=== PATIENT | male | born 1960 | race Caucasian/White ===

== ENCOUNTER 2017-10-11 11:28 | Outpatient (RCR) | payer OTHER, SELFPAY | END 2017-10-12 23:59 | disposition home or self-care (01) | LOC: CR 11:28 | PROVIDERS: PCP Family Medicine; Visit Provider Family Medicine | DX: Z51.89 Encounter for other specified aftercare (principal) ==

== ENCOUNTER 2017-11-08 08:00 | Outpatient (RCR) | payer OTHER, SELFPAY | END 2017-11-11 23:59 | disposition home or self-care (01) | LOC: CR 08:00 | PROVIDERS: PCP Family Medicine; Visit Provider Family Medicine | DX: Z51.89 Encounter for other specified aftercare (principal) ==

== ENCOUNTER 2017-12-11 08:00 | Outpatient (RCR) | payer SELFPAY, OTHER | END 2017-12-12 23:59 | disposition home or self-care (01) | LOC: CR 08:00 | PROVIDERS: PCP Family Medicine; Visit Provider Family Medicine | DX: Z51.89 Encounter for other specified aftercare (principal) ==

== ENCOUNTER 2018-01-10 08:00 | Outpatient (RCR) | payer SELFPAY | END 2018-01-11 23:59 | disposition home or self-care (01) | LOC: CR 08:00 | PROVIDERS: PCP Family Medicine; Visit Provider Family Medicine | DX: Z51.89 Encounter for other specified aftercare (principal) ==

== ENCOUNTER 2018-02-07 15:03 | Outpatient (RCR) | payer SELFPAY | END 2018-02-11 23:59 | disposition home or self-care (01) | LOC: CR 15:03 | PROVIDERS: PCP Family Medicine; Visit Provider Family Medicine | DX: Z51.89 Encounter for other specified aftercare (principal) ==

== ENCOUNTER 2018-03-12 08:00 | Outpatient (RCR) | payer OTHER, SELFPAY | END 2018-03-14 23:59 | disposition home or self-care (01) | LOC: CR 08:00 | PROVIDERS: PCP Family Medicine; Visit Provider Family Medicine | DX: Z51.89 Encounter for other specified aftercare (principal) ==

== ENCOUNTER 2018-04-11 12:51 | Outpatient (RCR) | payer SELFPAY | END 2018-04-11 23:59 | disposition home or self-care (01) | LOC: CR 12:51 | PROVIDERS: PCP Family Medicine; Visit Provider Family Medicine | DX: Z51.89 Encounter for other specified aftercare (principal) ==

== ENCOUNTER 2018-05-07 08:00 | Outpatient (RCR) | payer SELFPAY | END 2018-05-12 23:59 | disposition home or self-care (01) | LOC: CR 08:00 | PROVIDERS: PCP Family Medicine; Visit Provider Family Medicine | DX: Z51.89 Encounter for other specified aftercare (principal) ==

== ENCOUNTER 2018-06-11 08:00 | Outpatient (RCR) | payer SELFPAY | END 2018-06-11 23:59 | disposition home or self-care (01) | LOC: CR 08:00 | PROVIDERS: PCP Family Medicine; Visit Provider Family Medicine | DX: Z51.89 Encounter for other specified aftercare (principal) ==

== ENCOUNTER 2018-07-04 08:00 | Outpatient (RCR) | payer SELFPAY | END 2018-07-12 23:59 | disposition home or self-care (01) | LOC: CR 08:00 | PROVIDERS: PCP Family Medicine; Visit Provider Family Medicine | DX: Z51.89 Encounter for other specified aftercare (principal) ==

== ENCOUNTER 2018-07-25 09:48 | Emergency (ER) | payer MEDICARE, SELFPAY ==
[2018-07-25 09:51] VITALS: BP 129/76; PULSE 60; RESP 12; TEMP 36.2; O2SAT 98
--- NOTE | 2018-07-25 09:57 | W.ED.GENAD ---
Discharge Plan Disposition Patient Disposition: HOME Condition: Improving Discharge Details Chief Complaint: Laceration Clinical Impression: Laceration of hand, right Primary Care Provider: Vinay Caputo ED Provider: Percy Ramirez Home Meds and New Rx's Prescriptions: New cephalexin 500 mg tablet 500 mg PO TID 5 Days Qty: 15 RF: 0 Continued gabapentin 300 mg capsule 300 mg PO TID RF: 0 atorvastatin [Lipitor] 80 MG tablet 80 mg PO DAILY Qty: 90 RF: 4 aspirin [Aspirin Low-Strength] 81 MG tablet,chewable 81 mg PO DAILY RF: 0 famotidine 20 MG tablet 2 tab PO DAILY RF: 0 ProAir HFA 8.5 GM HFA aerosol inhaler 2 puff Inhalation prior to exercise PRNQty: 1 RF: 4 losartan 25 MG tablet 0.5 tab PO DAILY Qty: 90 RF: 4 nitroglycerin [Nitrostat] 0.4 MG tablet, sublingual 0.4 mg Sublingual ONCE Qty: 25 RF: 1 bisoprolol fumarate 5 MG tablet 2.5 mg PO DAILY Qty: 45 RF: 3 ibuprofen 600 MG tablet 600 mg PO PRN RF: 0 amoxicillin 500 MG capsule 2,000 mg PO 1 hour prior to proc RF: 0 sennosides [senna] 8.6 MG tablet 8.6 mg PO BID PRN PRNRF: 0 Vitamin C-Bioflavonoids 1 EACH tablet extended release 1 tab PO DAILY RF: 0 cholecalciferol (vitamin D3) 1,000 UNITS tablet 1 tab PO DAILY RF: 0 Discharge Instructions Instructions: Laceration (ED) Additional Instructions: Your laceration is healing by secondary intention. Continue dressing changes for the next 5 days. Take antibiotics as prescribed Return if you develop a fever, discharge from the wound, or any other acute concerns Medical Decision Making 58-year-old male who cut his right thenar eminence when it was pinched in his lawnmower deck on Sunday. He has been treating it with bacitracin and dressing. He was in cardiac rehab today and was referred for checkup by the nursing staff. He is afebrile and the wound appears to be healing by secondary intention. Thumb apposition and sensation are intact. His tetanus is current. We will treat him with 5 days of Keflex to prevent infection. He understands wound care. He is stable for discharge to home HPI General Mode of arrival: ambulatory. Date/Time Provider Initiated Documentation: 07/25/18 09:50. Limitations to Documentation: no limitations. Information obtained by: patient. History of Present Illness 58 year old M presents to the emergency department with the chief complaint of Right hand thenar eminence laceration on Sunday, described as mild, Quality is described as dull, and is localized to the right and upper extremity. Patient reports no radiation. Patient started experiencing this day(s) and it has been constant. No relieving factors improve symptom(s), No exacerbating factors reported . Patient notes no other symptoms.; denies fever/chills. Patient did receive the following treatments prior to arrival, none Related Data Home Medications Medication Instructions Recorded Confirmed aspirin [Aspirin Low-Strength] 81 mg PO DAILY tab-cap 08/03/14 01/30/18 atorvastatin [Lipitor] 80 mg PO DAILY #90 tab-cap 08/03/14 01/30/18 famotidine 2 tab PO DAILY tab-cap 11/03/14 01/30/18 ProAir HFA 2 puff INHALATION prior to 06/30/15 01/30/18 exercise PRN #1 inhaler losartan 0.5 tab PO DAILY #90 tab-cap 09/16/15 01/30/18 nitroglycerin [Nitrostat] 0.4 mg SUBLINGUAL ONCE #25 tab-cap 10/01/15 01/30/18 sennosides [senna] 8.6 mg PO BID PRN PRN 11/08/15 01/30/18 Vitamin C-Bioflavonoids 1 tab PO DAILY 11/15/15 01/30/18 cholecalciferol (vitamin D3) 1 tab PO DAILY 11/15/15 01/30/18 bisoprolol fumarate 2.5 mg PO DAILY #45 tab-cap 04/20/16 01/30/18 amoxicillin 2,000 mg PO 1 hour prior to proc 01/30/17 01/30/18 cap ibuprofen 600 mg PO PRN 01/30/17 01/30/18 gabapentin 300 mg capsule 300 mg PO TID 01/30/18 01/30/18 cephalexin 500 mg PO TID 5 Days #15 tab 07/25/18 Previous Rx's Medication Instructions Recorded cephalexin 500 mg PO TID 5 Days #15 tab 07/25/18 Allergies Allergy/AdvReac Type Severity Reaction Status Date / Time lisinopril Allergy Intermediate pruritis Verified 01/30/18 08:53 General Stated Complaint: Laceration ASH: 4 Review of Systems Review of Systems No fever, no discharge from the wound. No numbness or tingle tetanus status up-to-date 2013. [facility] Medical History CAD (coronary artery disease), [place] coronary artery Color blindness Hypertension Knee pain, chronic Surgical History Coronary Stent (07/31/14) KNEE SURGERY Family History SPOUSE Personal history of malignant neoplasm Mother Essential hypertension Father Personal history of malignant neoplasm Grandparent Diabetes Social History Smoking/Tobacco Use Status: Former Tobacco Use Drug use: Never Do you feel safe at home: Yes Do you feel safe in your relationship?: Yes Exam Narrative Exam Narrative: GEN: awake, alert, oriented 3. Pleasant, well groomed, interactive. HEAD: Normocephalic, atraumatic ENT: Mucous membranes moist, oropharynx unremarkable, External ear exam unremarkable EYES: PERRL, EOMI EXT: Full ROM, no edema, no rash. The right thenar eminence has a Y-shaped laceration through the soft tissue but without disruption of function. It is healing by secondary intention, there is no surrounding erythema and no discharge from the wound. Thumb apposition intact. Distal sensation intact Neuro: Grossly normal neurologic exam, conversant, interactive. Psych: Speech fluent, thoughts congruent, affect normal Course Vital Signs Temperature 36.2 C L 07/25/18 09:51 Pulse 60 07/25/18 09:51 Respiratory Rate 12 07/25/18 09:51 Blood Pressure 129/76 07/25/18 09:51 Pulse Oximetry 98 07/25/18 09:51 Temperature 36.2 C L 07/25/18 09:51 Temperature Source Temporal Artery Scan 07/25/18 09:51 Pulse 60 07/25/18 09:51 Respiratory Rate 12 07/25/18 09:51 Respiratory Effort Non-Labored 07/25/18 09:53 Blood Pressure 129/76 07/25/18 09:51 Blood Pressure Position Sitting 07/25/18 09:51 Pulse Oximetry 98 07/25/18 09:51 Oxygen Delivery Method Room Air 07/25/18 09:51 Oxygen Flow Rate 0 07/25/18 09:51 Pain Level 0 07/25/18 09:54
== END 2018-07-25 10:07 | disposition home or self-care (01) ==
LOC: ER 10:24
PROVIDERS: Emergency Provider Emergency Medicine; PCP Physician Assistant Medical
DX: S61.411A Laceration without foreign body of right hand, initial encounter (principal); W28.XXXA Contact with powered lawn mower, initial encounter
CPT/HCPCS: 99283

== ENCOUNTER 2018-08-08 11:23 | Outpatient (RCR) | payer SELFPAY | END 2018-08-11 23:59 | disposition home or self-care (01) | LOC: CR 11:23 | PROVIDERS: PCP Family Medicine; Visit Provider Family Medicine | DX: Z51.89 Encounter for other specified aftercare (principal) ==

== ENCOUNTER 2018-09-10 13:26 | Outpatient (RCR) | payer SELFPAY | END 2018-09-11 23:59 | disposition home or self-care (01) | LOC: CR 13:26 | PROVIDERS: PCP Physician Assistant Medical; Visit Provider Family Medicine | DX: Z51.89 Encounter for other specified aftercare (principal) ==

== ENCOUNTER 2018-10-08 11:42 | Outpatient (RCR) | payer SELFPAY | END 2018-10-12 23:59 | disposition home or self-care (01) | LOC: CR 11:42 | PROVIDERS: PCP Physician Assistant Medical; Visit Provider Family Medicine | DX: Z51.89 Encounter for other specified aftercare (principal) ==

== ENCOUNTER 2018-11-07 11:56 | Outpatient (RCR) | payer SELFPAY | END 2018-11-11 23:59 | disposition home or self-care (01) | LOC: CR 11:56 | PROVIDERS: PCP Physician Assistant Medical; Visit Provider Family Medicine | DX: Z51.89 Encounter for other specified aftercare (principal) ==

== ENCOUNTER 2018-12-12 12:00 | Outpatient (RCR) | payer SELFPAY | END 2018-12-12 23:59 | disposition home or self-care (01) | LOC: CR 12:00 | PROVIDERS: PCP Physician Assistant Medical; Visit Provider Family Medicine | DX: Z51.89 Encounter for other specified aftercare (principal) ==

== ENCOUNTER 2019-01-02 11:22 | Outpatient (RCR) | payer SELFPAY | END 2019-01-11 23:59 | disposition home or self-care (01) | LOC: CR 11:22 | PROVIDERS: PCP Physician Assistant Medical; Visit Provider Family Medicine | DX: Z51.89 Encounter for other specified aftercare (principal) ==

== ENCOUNTER 2019-02-06 08:00 | Outpatient (RCR) | payer SELFPAY | END 2019-02-11 23:59 | disposition home or self-care (01) | LOC: CR 08:00 | PROVIDERS: PCP Physician Assistant Medical; Visit Provider Family Medicine | DX: Z51.89 Encounter for other specified aftercare (principal) ==

== ENCOUNTER 2019-03-13 08:00 | Outpatient (RCR) | payer SELFPAY | END 2019-03-14 23:59 | disposition home or self-care (01) | LOC: CR 08:00 | PROVIDERS: PCP Physician Assistant Medical; Visit Provider Family Medicine | DX: Z51.89 Encounter for other specified aftercare (principal) ==

== ENCOUNTER 2019-04-10 08:00 | Outpatient (RCR) | payer SELFPAY | END 2019-04-12 23:59 | disposition home or self-care (01) | LOC: CR 08:00 | PROVIDERS: PCP Physician Assistant Medical; Visit Provider Family Medicine | DX: Z51.89 Encounter for other specified aftercare (principal) ==

== ENCOUNTER 2019-04-22 08:00 | Outpatient (RCR) | payer SELFPAY | END 2019-05-13 23:59 | disposition home or self-care (01) | LOC: CR 08:00 | PROVIDERS: PCP Physician Assistant Medical; Visit Provider Family Medicine | DX: Z51.89 Encounter for other specified aftercare (principal) ==

== ENCOUNTER 2020-08-10 09:00 | Outpatient (RCR) | payer SELFPAY ==
[2020-07-13 15:53] VITALS: BP 130/87; PULSE 63
[2020-07-15 08:58] VITALS: BP 121/81; PULSE 61
[2020-07-20 09:02] VITALS: BP 135/87; PULSE 80
[2020-07-22 08:55] VITALS: BP 146/81; PULSE 62
[2020-07-27 08:51] VITALS: BP 128/84; PULSE 63
[2020-08-03 08:55] VITALS: BP 142/88; PULSE 63
[2020-08-05 08:34] VITALS: BP 114/72; PULSE 62
[2020-08-10 09:07] VITALS: BP 134/75; PULSE 63
== END 2020-08-11 23:59 | disposition home or self-care (01) ==
LOC: CR 09:00
PROVIDERS: PCP Physician Assistant Medical; Visit Provider Family Medicine
DX: Z51.89 Encounter for other specified aftercare (principal)

== ENCOUNTER 2020-09-09 09:00 | Outpatient (RCR) | payer SELFPAY ==
[2020-08-12 00:26] VITALS: BP 134/75; PULSE 63
[2020-08-12 08:54] VITALS: BP 142/90; PULSE 60
[2020-08-17 09:00] VITALS: BP 130/79; PULSE 59; O2SAT 94
[2020-08-24 08:59] VITALS: BP 126/78; PULSE 62
[2020-08-26 08:57] VITALS: BP 118/86; PULSE 69
[2020-08-31 09:17] VITALS: BP 116/69; PULSE 63
[2020-09-07 09:06] VITALS: BP 129/80; PULSE 61
[2020-09-09 08:59] VITALS: BP 132/82; PULSE 60
== END 2020-09-11 23:59 | disposition home or self-care (01) ==
LOC: CR 09:00
PROVIDERS: PCP Physician Assistant Medical; Visit Provider Family Medicine
DX: Z51.89 Encounter for other specified aftercare (principal)

== ENCOUNTER 2020-10-12 09:00 | Outpatient (RCR) | payer SELFPAY ==
[2020-09-12 00:25] VITALS: BP 132/82; PULSE 60
[2020-09-14 08:57] VITALS: BP 126/71; PULSE 53
[2020-09-16 08:48] VITALS: BP 120/69; PULSE 60
[2020-09-21 08:58] VITALS: BP 124/78; PULSE 51
[2020-09-23 09:05] VITALS: BP 123/78; PULSE 61
[2020-09-28 09:34] VITALS: BP 125/80; PULSE 59
[2020-10-05 09:22] VITALS: BP 118/64; PULSE 58
[2020-10-12 09:08] VITALS: BP 129/75; PULSE 67
== END 2020-10-12 23:59 | disposition home or self-care (01) ==
LOC: CR 09:00
PROVIDERS: PCP Physician Assistant Medical; Visit Provider Family Medicine
DX: Z51.89 Encounter for other specified aftercare (principal)

== ENCOUNTER 2020-11-11 09:00 | Outpatient (RCR) | payer SELFPAY ==
[2020-10-13 00:11] VITALS: BP 129/75; PULSE 67
[2020-10-14 10:15] VITALS: BP 123/75; PULSE 58
[2020-10-19 13:25] VITALS: BP 111/67; PULSE 61
[2020-10-21 09:40] VITALS: BP 122/67; PULSE 62
[2020-10-26 09:05] VITALS: BP 137/81; PULSE 67
[2020-10-28 09:39] VITALS: BP 128/76; PULSE 65
[2020-11-02 08:56] VITALS: BP 126/80; PULSE 56
[2020-11-04 10:52] VITALS: BP 116/68; PULSE 56
[2020-11-09 09:13] VITALS: BP 111/65; PULSE 67
[2020-11-11 08:52] VITALS: BP 125/73; PULSE 62
[2020-11-16 09:06] VITALS: BP 133/87; PULSE 59
== END 2020-11-11 23:59 | disposition home or self-care (01) ==
LOC: CR 09:00
PROVIDERS: PCP Physician Assistant Medical; Visit Provider Family Medicine
DX: Z51.89 Encounter for other specified aftercare (principal)

== ENCOUNTER 2020-12-07 09:00 | Outpatient (RCR) | payer SELFPAY ==
[2020-11-12 00:21] VITALS: BP 125/73; PULSE 62
[2020-11-18 09:05] VITALS: BP 128/69; PULSE 62
[2020-11-23 09:46] VITALS: BP 132/82; PULSE 62
[2020-11-25 09:25] VITALS: BP 115/70; PULSE 57
[2020-11-30 08:51] VITALS: BP 140/77; PULSE 57
[2020-12-02 08:45] VITALS: BP 125/76; PULSE 65
[2020-12-07 09:09] VITALS: BP 136/79; PULSE 57
== END 2020-12-12 23:59 | disposition home or self-care (01) ==
LOC: CR 09:00
PROVIDERS: PCP Physician Assistant Medical; Visit Provider Family Medicine
DX: Z51.89 Encounter for other specified aftercare (principal); R69 Illness, unspecified

== ENCOUNTER 2021-01-11 09:00 | Outpatient (RCR) | payer SELFPAY ==
[2020-12-13 00:24] VITALS: BP 136/79; PULSE 57
[2020-12-14 09:05] VITALS: BP 123/75; PULSE 63
[2020-12-16 08:58] VITALS: BP 103/66; PULSE 63
[2020-12-21 09:10] VITALS: BP 133/77; PULSE 67
[2020-12-23 11:00] VITALS: BP 125/77; PULSE 69
[2020-12-30 08:58] VITALS: BP 123/78; PULSE 71
[2021-01-04 09:05] VITALS: BP 128/79; PULSE 62
[2021-01-11 09:27] VITALS: BP 137/79; PULSE 72
== END 2021-01-11 23:59 | disposition home or self-care (01) ==
LOC: CR 09:00
PROVIDERS: PCP Physician Assistant Medical; Visit Provider Family Medicine
DX: Z51.89 Encounter for other specified aftercare (principal); R69 Illness, unspecified

== ENCOUNTER 2021-02-10 09:00 | Outpatient (RCR) | payer SELFPAY ==
[2021-01-12 00:20] VITALS: BP 137/79; PULSE 72
[2021-01-13 08:58] VITALS: BP 124/73; PULSE 74
[2021-01-20 08:19] VITALS: BP 147/80; PULSE 71
[2021-01-25 08:51] VITALS: BP 138/81; PULSE 61
[2021-01-27 08:16] VITALS: BP 116/65; PULSE 62
[2021-02-01 08:57] VITALS: BP 129/76; PULSE 64
[2021-02-03 08:57] VITALS: BP 137/80; PULSE 70
[2021-02-10 09:12] VITALS: BP 139/75; PULSE 58
== END 2021-02-11 23:59 | disposition home or self-care (01) ==
LOC: CR 09:00
PROVIDERS: PCP Physician Assistant Medical; Visit Provider Family Medicine
DX: Z51.89 Encounter for other specified aftercare (principal)

== ENCOUNTER 2021-02-14 15:10 | Outpatient (RCR) | payer SELFPAY ==
[2021-02-12 00:09] VITALS: BP 139/75; PULSE 58
== END 2021-03-14 23:59 | disposition home or self-care (01) ==
LOC: CR 15:10
PROVIDERS: PCP Physician Assistant Medical; Visit Provider Family Medicine
DX: R69 Illness, unspecified (principal)

== ENCOUNTER 2021-05-10 09:00 | Outpatient (RCR) | payer SELFPAY ==
[2021-04-12 09:31] VITALS: BP 126/76; PULSE 82
[2021-04-14 09:16] VITALS: BP 122/75; PULSE 63
[2021-04-19 08:59] VITALS: BP 145/92; PULSE 57
[2021-04-21 09:29] VITALS: BP 145/80; PULSE 67
[2021-04-26 09:07] VITALS: BP 132/66; PULSE 56
[2021-04-28 09:01] VITALS: BP 139/73; PULSE 55
[2021-05-03 08:59] VITALS: BP 131/76; PULSE 61; O2SAT 96
[2021-05-10 09:25] VITALS: BP 135/81; PULSE 62
[2021-05-12 11:43] VITALS: BP 138/78; PULSE 55
== END 2021-05-12 23:59 | disposition home or self-care (01) ==
LOC: CR 09:00
PROVIDERS: PCP Physician Assistant Medical; Visit Provider Family Medicine
DX: R69 Illness, unspecified (principal)

== ENCOUNTER 2021-06-09 09:00 | Outpatient (RCR) | payer SELFPAY ==
[2021-05-13 00:06] VITALS: BP 138/78; PULSE 55
[2021-05-17 09:14] VITALS: BP 181/94; PULSE 67
[2021-05-19 09:02] VITALS: BP 143/88; PULSE 60
[2021-05-24 09:17] VITALS: BP 157/87; PULSE 62
[2021-05-26 08:52] VITALS: BP 151/80; PULSE 61
[2021-05-31 09:42] VITALS: BP 130/77; PULSE 59
[2021-06-02 09:48] VITALS: BP 147/91; PULSE 60; O2SAT 94
[2021-06-07 08:57] VITALS: BP 142/84; PULSE 54
[2021-06-09 10:21] VITALS: BP 158/80; PULSE 50
== END 2021-06-11 23:59 | disposition home or self-care (01) ==
LOC: CR 09:00
PROVIDERS: PCP Physician Assistant Medical; Visit Provider Internal Medicine Cardiovascular Disease
DX: R69 Illness, unspecified (principal)

== ENCOUNTER 2021-07-05 09:00 | Outpatient (RCR) | payer SELFPAY ==
[2021-06-12 00:13] VITALS: BP 158/80; PULSE 50
[2021-06-14 09:06] VITALS: BP 133/79; PULSE 61
[2021-06-16 08:59] VITALS: BP 149/83; PULSE 55
[2021-06-21 09:00] VITALS: BP 152/86; PULSE 53
[2021-06-28 10:11] VITALS: BP 145/84; PULSE 55
[2021-07-05 09:35] VITALS: BP 155/85; PULSE 56
== END 2021-07-12 23:59 | disposition home or self-care (01) ==
LOC: CR 09:00
PROVIDERS: PCP Physician Assistant Medical; Visit Provider Internal Medicine Cardiovascular Disease
DX: R69 Illness, unspecified (principal)

== ENCOUNTER 2021-08-11 15:05 | Outpatient (RCR) | payer SELFPAY ==
[2021-07-13 00:15] VITALS: BP 155/85; PULSE 56
[2021-07-14 08:56] VITALS: BP 145/82; PULSE 55
[2021-07-19 08:54] VITALS: BP 118/60; PULSE 57
[2021-07-26 09:32] VITALS: BP 157/87; PULSE 54
[2021-07-28 09:03] VITALS: BP 136/84; PULSE 62
[2021-08-02 09:01] VITALS: BP 154/85; PULSE 53
[2021-08-04 08:51] VITALS: BP 142/80; PULSE 54
[2021-08-09 09:42] VITALS: BP 130/82; PULSE 52
[2021-08-11 09:00] VITALS: BP 141/83; PULSE 52
== END 2021-08-11 23:59 | disposition home or self-care (01) ==
LOC: CR 15:05
PROVIDERS: PCP Physician Assistant Medical; Visit Provider Internal Medicine Cardiovascular Disease
DX: R69 Illness, unspecified (principal)

== ENCOUNTER 2021-09-08 08:46 | Outpatient (RCR) | payer SELFPAY ==
[2021-08-16 09:19] VITALS: BP 147/83; PULSE 52
[2021-08-18 09:12] VITALS: BP 137/81; PULSE 58
[2021-08-23 08:50] VITALS: BP 137/75; PULSE 62
[2021-08-25 09:50] VITALS: BP 127/80; PULSE 62
[2021-08-30 08:53] VITALS: BP 122/78; PULSE 55
[2021-09-08 08:47] VITALS: BP 120/76; PULSE 54
== END 2021-09-11 23:59 | disposition home or self-care (01) ==
LOC: CR 08:46
PROVIDERS: PCP Physician Assistant Medical; Visit Provider Internal Medicine Cardiovascular Disease
DX: R69 Illness, unspecified (principal)

== ENCOUNTER 2021-10-11 09:00 | Outpatient (RCR) | payer SELFPAY ==
[2021-09-12 00:15] VITALS: BP 120/76; PULSE 54
[2021-09-13 09:18] VITALS: BP 120/72; PULSE 59
[2021-09-15 09:19] VITALS: BP 142/83; PULSE 58
[2021-09-20 09:26] VITALS: BP 122/77; PULSE 53
[2021-09-22 09:17] VITALS: BP 147/89; PULSE 57
[2021-09-27 08:45] VITALS: BP 122/78; PULSE 56
[2021-09-29 08:48] VITALS: BP 124/74; PULSE 54; O2SAT 92
[2021-10-04 08:50] VITALS: BP 133/82; PULSE 60
[2021-10-06 08:45] VITALS: BP 116/69; PULSE 55
[2021-10-11 09:12] VITALS: BP 124/79; PULSE 55
== END 2021-10-12 23:59 | disposition home or self-care (01) ==
LOC: CR 09:00
PROVIDERS: PCP Physician Assistant Medical; Visit Provider Internal Medicine Cardiovascular Disease
DX: R69 Illness, unspecified (principal)

== ENCOUNTER 2021-11-08 09:03 | Outpatient (RCR) | payer SELFPAY ==
[2021-10-13 00:06] VITALS: BP 124/79; PULSE 55
[2021-10-13 09:03] VITALS: BP 136/75; PULSE 55
[2021-10-25 08:41] VITALS: BP 148/79; PULSE 57
[2021-10-27 09:20] VITALS: BP 139/77; PULSE 62
[2021-11-01 08:51] VITALS: BP 131/72; PULSE 52
[2021-11-03 08:51] VITALS: BP 141/77; PULSE 58
[2021-11-08 08:54] VITALS: BP 164/81; PULSE 57
== END 2021-11-11 23:59 | disposition home or self-care (01) ==
LOC: CR 09:03
PROVIDERS: PCP Physician Assistant Medical; Visit Provider Internal Medicine Cardiovascular Disease
DX: R69 Illness, unspecified (principal)

== ENCOUNTER 2021-12-08 08:43 | Outpatient (RCR) | payer SELFPAY ==
[2021-11-12 00:18] VITALS: BP 164/81; PULSE 57
[2021-11-15 08:58] VITALS: BP 151/84; PULSE 57
[2021-11-17 08:52] VITALS: BP 144/78; PULSE 59
[2021-11-22 08:53] VITALS: BP 130/77; PULSE 58
[2021-11-24 09:29] VITALS: BP 137/76; PULSE 58
[2021-12-01 09:53] VITALS: BP 141/86; PULSE 53
[2021-12-08 08:46] VITALS: BP 112/72; PULSE 57
== END 2021-12-12 23:59 | disposition home or self-care (01) ==
LOC: CR 08:43
PROVIDERS: PCP Physician Assistant Medical; Visit Provider Internal Medicine Cardiovascular Disease
DX: R69 Illness, unspecified (principal)
CPT/HCPCS: S9472

== ENCOUNTER 2022-01-10 09:13 | Outpatient (RCR) | payer SELFPAY ==
[2021-12-13 00:07] VITALS: BP 112/72; PULSE 57
[2021-12-13 11:32] VITALS: BP 122/77; PULSE 58
[2021-12-15 09:00] VITALS: BP 134/75; PULSE 55
[2021-12-22 08:48] VITALS: BP 126/81; PULSE 57
[2021-12-27 08:59] VITALS: BP 117/68; PULSE 65
[2021-12-29 08:51] VITALS: BP 136/81; PULSE 53
[2022-01-10 09:17] VITALS: BP 115/57; PULSE 60
== END 2022-01-11 23:59 | disposition home or self-care (01) ==
LOC: CR 09:13
PROVIDERS: PCP Physician Assistant Medical; Visit Provider Internal Medicine Cardiovascular Disease
DX: R69 Illness, unspecified (principal)

== ENCOUNTER 2022-02-09 09:05 | Outpatient (RCR) | payer SELFPAY ==
[2022-01-12 00:06] VITALS: BP 115/57; PULSE 60
[2022-01-12 09:32] VITALS: BP 131/78; PULSE 63
[2022-01-17 10:11] VITALS: BP 150/91; PULSE 63
[2022-01-19 09:00] VITALS: BP 122/75; PULSE 72
[2022-01-24 08:57] VITALS: BP 103/65; PULSE 63
[2022-01-31 09:05] VITALS: BP 114/68; PULSE 55
[2022-02-02 09:28] VITALS: BP 138/76; PULSE 74
[2022-02-09 09:06] VITALS: BP 137/72; PULSE 65
== END 2022-02-11 23:59 | disposition home or self-care (01) ==
LOC: CR 09:05
PROVIDERS: PCP Physician Assistant Medical; Visit Provider Internal Medicine Cardiovascular Disease
DX: R69 Illness, unspecified (principal)

== ENCOUNTER 2022-03-14 09:15 | Outpatient (RCR) | payer SELFPAY ==
[2022-02-12 00:04] VITALS: BP 137/72; PULSE 65
[2022-02-16 09:17] VITALS: BP 139/74; PULSE 57
[2022-02-21 08:59] VITALS: BP 131/73; PULSE 62
[2022-02-28 09:07] VITALS: BP 149/80; PULSE 63
[2022-03-02 09:10] VITALS: BP 145/83; PULSE 53
[2022-03-07 09:04] VITALS: BP 158/88; PULSE 59
[2022-03-09 09:10] VITALS: BP 144/87; PULSE 58
[2022-03-14 13:21] VITALS: BP 130/81; PULSE 60
== END 2022-03-14 23:59 | disposition home or self-care (01) ==
LOC: CR 09:15
PROVIDERS: PCP Physician Assistant Medical; Visit Provider Internal Medicine Cardiovascular Disease
DX: R69 Illness, unspecified (principal)

== ENCOUNTER 2022-04-11 09:00 | Outpatient (RCR) | payer SELFPAY ==
[2022-03-16 09:04] VITALS: BP 158/83; PULSE 60
[2022-03-21 13:54] VITALS: BP 120/74; PULSE 52
[2022-03-23 13:16] VITALS: BP 131/79; PULSE 58
[2022-03-28 08:59] VITALS: BP 139/79; PULSE 59
[2022-04-04 09:17] VITALS: BP 121/65; PULSE 56
[2022-04-06 08:58] VITALS: BP 127/79; PULSE 60
[2022-04-11 08:53] VITALS: BP 135/78; PULSE 62
== END 2022-04-11 23:59 | disposition home or self-care (01) ==
LOC: CR 09:00
PROVIDERS: PCP Physician Assistant Medical; Visit Provider Internal Medicine Cardiovascular Disease
DX: R69 Illness, unspecified (principal)

== ENCOUNTER 2022-05-11 08:51 | Outpatient (RCR) | payer SELFPAY ==
[2022-04-12 00:08] VITALS: BP 135/78; PULSE 62
[2022-04-13 08:57] VITALS: BP 106/67; PULSE 67
[2022-04-18 09:02] VITALS: BP 127/80; PULSE 55
[2022-04-25 09:13] VITALS: BP 127/74; PULSE 63
[2022-05-02 09:28] VITALS: BP 119/72; PULSE 61
[2022-05-04 09:10] VITALS: BP 140/78; PULSE 58
[2022-05-09 09:11] VITALS: BP 164/90; PULSE 60
[2022-05-11 08:48] VITALS: BP 163/82; PULSE 60
[2022-05-16 08:49] VITALS: BP 134/79; PULSE 60
== END 2022-05-12 23:59 | disposition home or self-care (01) ==
LOC: CR 08:51
PROVIDERS: PCP Physician Assistant Medical; Visit Provider Internal Medicine Cardiovascular Disease

== ENCOUNTER 2022-06-05 01:35 | Outpatient (CLI) | payer MEDICARE, SELFPAY ==
[2022-06-05 13:30] LABS: PTT Activated 25.9 sec (21.5-31.9); Prothrombin Time 9.8 sec (9.3-11.0)
[2022-06-05 13:42] LABS: Abs Immature Grans 0.05 10^3/uL (0.0-0.06); Absolute Basophil Count 0.06 10^3/uL (0.0-0.2); Absolute Lymphocyte Count 2.08 10^3/uL (1.2-3.4); Absolute Monocyte Count 0.61 10^3/uL (0.1-0.8); Basophils % 0.5; Eosinophils % 0.9; HCT 38.4 % (40.0-50.0); HGB 12.8 g/dL (13.5-17.5); Immature Grans % 0.4; MCH 29.9 pg (27.0-33.0); MCHC 33.3 % (32.0-36.0); MCV 90 fL (80-95); MPV 10.2 fL (8.0-11.0); Monocytes % 5.3; Neutrophils % 74.9; Platelet Count 310 10^3/uL (130-400); RBC 4.28 10^6/uL (4.36-5.78); RDW 13.5 % (11.8-14.1); RDW-SD 44.6 fL; WBC 11.58 10^3/uL (4.4-10.8)
[2022-06-05 14:00] LABS: Bilirubin Negative (Negative); Blood Moderate (Negative); Clarity Clear (Clear); Glucose Negative (Negative); Ketones Negative (Negative); Leukocyte Esterase Negative (Negative); Nitrite Negative (Negative); Specific Gravity 1.025 (1.005-1.025); Urobilinogen 0.2 mg/dL (Up to 0.2)
[2022-06-05 14:00] LABS: Absolute Neutrophil Count 8.67 10^3/uL (1.2-6.7)
[2022-06-05 14:02] LABS: Anion Gap 9.2 mmol/L (3-11); BUN 9 mg/dL (7-18); CO2 24.8 mmol/L (21.0-32.0); CREATININE 0.9 mg/dL (0.70-1.30); Chloride 106 mmol/L (98-107); Estimated GFR 95.97 (mL/min/1.73m2); Potassium 3.9 mmol/L (3.5-5.1); Sodium 140 mmol/L (136-145)
[2022-06-05 14:14] LABS: Bacteria Few HPF (Negative); C & S Indicated? No; Casts Negative LPF (Negative); Crystals Negative HPF (Negative); Epithelial Cells Rare HPF (Negative); Mucus Negative (Negative); Other Cells Negative (Negative); WBC Negative HPF (0-5)
== END 2022-06-05 01:36 | disposition home or self-care (01) ==
LOC: LBO 01:35
PROVIDERS: PCP Physician Assistant Medical; Visit Provider Neurological Surgery
DX: M43.16 Spondylolisthesis, lumbar region (principal); R82.998 Other abnormal findings in urine; Z86.2 Personal history of diseases of the blood and blood-forming organs and certain disorders involving the immune mechanism
CPT/HCPCS: 36415; 80051; 84520; 81003; 81015; 82565; 85025; 85610; 85730

== ENCOUNTER 2022-06-06 09:11 | Outpatient (RCR) | payer SELFPAY ==
[2022-05-13 00:17] VITALS: BP 163/82; PULSE 60
[2022-05-18 09:03] VITALS: BP 137/80
[2022-05-23 08:55] VITALS: BP 114/58; PULSE 66
[2022-05-25 09:00] VITALS: BP 153/86; PULSE 54
[2022-05-30 08:53] VITALS: BP 116/69; PULSE 62
[2022-06-01 09:01] VITALS: BP 116/75; PULSE 59
[2022-06-06 10:11] VITALS: BP 117/65; PULSE 64
== END 2022-06-11 23:59 | disposition home or self-care (01) ==
LOC: CR 09:11
PROVIDERS: PCP Physician Assistant Medical; Visit Provider Internal Medicine Cardiovascular Disease
DX: R69 Illness, unspecified (principal)

== ENCOUNTER 2022-10-10 09:18 | Outpatient (RCR) | payer SELFPAY ==
[2022-09-12 09:08] VITALS: BP 129/76; PULSE 57
[2022-09-14 09:22] VITALS: BP 133/75; PULSE 50
[2022-09-19 08:55] VITALS: BP 128/71; PULSE 56
[2022-09-26 09:31] VITALS: BP 130/76; PULSE 53
[2022-09-28 08:44] VITALS: BP 119/72; PULSE 55
[2022-10-05 09:18] VITALS: BP 143/74; PULSE 50
[2022-10-10 09:38] VITALS: BP 117/67; PULSE 57
== END 2022-10-12 23:59 | disposition home or self-care (01) ==
LOC: CR 09:18
PROVIDERS: PCP Physician Assistant Medical; Visit Provider Internal Medicine Cardiovascular Disease
DX: R69 Illness, unspecified (principal)

== ENCOUNTER 2022-11-09 09:07 | Outpatient (RCR) | payer SELFPAY ==
[2022-10-13 00:21] VITALS: BP 117/67; PULSE 57
[2022-10-17 09:16] VITALS: BP 125/73; PULSE 62
[2022-10-19 09:27] VITALS: BP 126/77; PULSE 58
[2022-10-24 09:10] VITALS: BP 115/70; PULSE 61
[2022-10-26 10:12] VITALS: BP 101/60; PULSE 57
[2022-11-02 09:15] VITALS: BP 105/68; PULSE 55
[2022-11-07 09:14] VITALS: BP 113/65; PULSE 55
[2022-11-09 09:15] VITALS: BP 113/69; PULSE 55
== END 2022-11-11 23:59 | disposition home or self-care (01) ==
LOC: CR 09:07
PROVIDERS: PCP Physician Assistant Medical; Visit Provider Internal Medicine Cardiovascular Disease
DX: R69 Illness, unspecified (principal)

== ENCOUNTER 2022-12-07 09:05 | Outpatient (RCR) | payer SELFPAY ==
[2022-11-12 00:17] VITALS: BP 113/69; PULSE 55
[2022-11-30 09:34] VITALS: BP 129/85; PULSE 54
[2022-12-05 09:20] VITALS: BP 141/78; PULSE 58
[2022-12-07 08:45] VITALS: BP 118/74; PULSE 57
== END 2022-12-12 23:59 | disposition home or self-care (01) ==
LOC: CR 09:05
PROVIDERS: PCP Physician Assistant Medical; Visit Provider Internal Medicine Cardiovascular Disease
DX: R69 Illness, unspecified (principal)

== ENCOUNTER 2023-01-11 09:07 | Outpatient (RCR) | payer SELFPAY ==
[2022-12-13 00:21] VITALS: BP 113/69; PULSE 55
[2022-12-21 09:03] VITALS: BP 149/74; PULSE 54
[2022-12-28 09:28] VITALS: BP 103/66; PULSE 58
[2023-01-02 09:20] VITALS: BP 116/64; PULSE 56
[2023-01-09 09:07] VITALS: BP 135/64; PULSE 73
[2023-01-11 08:58] VITALS: BP 131/69; PULSE 51
== END 2023-01-11 23:59 | disposition home or self-care (01) ==
LOC: CR 09:07
PROVIDERS: PCP Physician Assistant Medical; Visit Provider Internal Medicine Cardiovascular Disease
DX: R69 Illness, unspecified (principal)

== ENCOUNTER 2023-02-06 08:46 | Outpatient (RCR) | payer SELFPAY ==
[2023-01-12 00:11] VITALS: BP 113/69; PULSE 55
[2023-01-16 09:00] VITALS: BP 142/70; PULSE 59
[2023-01-18 08:55] VITALS: BP 116/69; PULSE 59
[2023-01-25 10:49] VITALS: BP 109/71; PULSE 60
[2023-01-30 08:45] VITALS: BP 128/68; PULSE 51
[2023-02-01 09:01] VITALS: BP 111/68; PULSE 55
[2023-02-06 09:06] VITALS: BP 111/67; PULSE 51
== END 2023-02-11 23:59 | disposition home or self-care (01) ==
LOC: CR 08:46
PROVIDERS: PCP Physician Assistant Medical; Visit Provider Internal Medicine Cardiovascular Disease
DX: R69 Illness, unspecified (principal)

== ENCOUNTER 2023-03-08 09:16 | Outpatient (RCR) | payer SELFPAY ==
[2023-02-12 00:05] VITALS: BP 113/69; PULSE 55
[2023-02-13 09:12] VITALS: BP 128/65; PULSE 54
[2023-02-20 09:18] VITALS: BP 111/69; PULSE 54
[2023-03-01 08:51] VITALS: BP 108/59; PULSE 62
[2023-03-08 09:21] VITALS: BP 106/67; PULSE 58
== END 2023-03-14 23:59 | disposition home or self-care (01) ==
LOC: CR 09:16
PROVIDERS: PCP Physician Assistant Medical; Visit Provider Internal Medicine Interventional Cardiology
DX: R69 Illness, unspecified (principal)

== ENCOUNTER 2023-04-10 09:53 | Outpatient (RCR) | payer SELFPAY ==
[2023-03-15 00:05] VITALS: BP 113/69; PULSE 55
[2023-03-15 08:54] VITALS: BP 112/67; PULSE 53
[2023-03-20 09:14] VITALS: BP 107/68; PULSE 62
[2023-03-22 09:51] VITALS: BP 134/67; PULSE 51
[2023-03-27 08:58] VITALS: BP 138/70; PULSE 62
[2023-04-10 10:16] VITALS: BP 143/85; PULSE 49
== END 2023-04-12 23:59 | disposition home or self-care (01) ==
LOC: CR 09:53
PROVIDERS: PCP Physician Assistant Medical; Visit Provider Internal Medicine Cardiovascular Disease
DX: R69 Illness, unspecified (principal)

== ENCOUNTER 2023-05-08 09:03 | Outpatient (RCR) | payer SELFPAY ==
[2023-04-13 00:17] VITALS: BP 113/69; PULSE 55
[2023-04-17 08:57] VITALS: BP 129/77; PULSE 55
[2023-04-24 09:05] VITALS: BP 142/80; PULSE 55
[2023-04-26 09:37] VITALS: BP 130/72; PULSE 58
[2023-05-01 09:00] VITALS: BP 163/85; PULSE 56
[2023-05-08 08:53] VITALS: BP 136/81; PULSE 54
== END 2023-05-13 23:59 | disposition home or self-care (01) ==
LOC: CR 09:03
PROVIDERS: PCP Physician Assistant Medical; Visit Provider Internal Medicine Cardiovascular Disease
DX: R69 Illness, unspecified (principal)

== ENCOUNTER 2023-06-12 08:45 | Outpatient (RCR) | payer SELFPAY ==
[2023-05-15 10:15] VITALS: BP 121/67; PULSE 57
[2023-05-17 08:46] VITALS: BP 133/74; PULSE 59
[2023-05-22 09:11] VITALS: BP 118/63; PULSE 52
[2023-06-12 08:56] VITALS: BP 145/80; PULSE 59
== END 2023-06-12 23:59 | disposition home or self-care (01) ==
LOC: CR 08:45
PROVIDERS: PCP Physician Assistant Medical; Visit Provider Internal Medicine Cardiovascular Disease
DX: R69 Illness, unspecified (principal)

== ENCOUNTER 2023-07-12 09:20 | Outpatient (RCR) | payer SELFPAY ==
[2023-06-13 00:12] VITALS: BP 145/80; PULSE 59
[2023-06-19 09:09] VITALS: BP 128/71; PULSE 59
[2023-06-21 10:40] VITALS: BP 119/73; PULSE 54
[2023-06-26 09:17] VITALS: BP 141/79; PULSE 58
[2023-06-28 09:00] VITALS: BP 121/69; PULSE 58
[2023-07-10 09:12] VITALS: BP 116/76; PULSE 56
[2023-07-12 09:15] VITALS: BP 115/68; PULSE 56
== END 2023-07-13 23:59 | disposition home or self-care (01) ==
LOC: CR 09:20
PROVIDERS: PCP Physician Assistant Medical; Visit Provider Internal Medicine Cardiovascular Disease
DX: R69 Illness, unspecified (principal)

== ENCOUNTER 2023-08-09 09:02 | Outpatient (RCR) | payer SELFPAY ==
[2023-07-14 00:22] VITALS: BP 145/80; PULSE 59
[2023-07-17 09:24] VITALS: BP 126/72; PULSE 55
[2023-07-24 09:13] VITALS: BP 125/79; PULSE 55
[2023-07-26 12:26] VITALS: BP 136/86; PULSE 55
[2023-07-31 09:17] VITALS: BP 115/73; PULSE 58
[2023-08-09 09:14] VITALS: BP 126/76; PULSE 57
== END 2023-08-12 23:59 | disposition home or self-care (01) ==
LOC: CR 09:02
PROVIDERS: PCP Physician Assistant Medical; Visit Provider Internal Medicine Cardiovascular Disease
DX: R69 Illness, unspecified (principal)

== ENCOUNTER 2023-09-06 09:00 | Outpatient (RCR) | payer SELFPAY ==
[2023-08-13 00:24] VITALS: BP 145/80; PULSE 59
[2023-08-14 09:58] VITALS: BP 125/73; PULSE 48
[2023-09-04 09:08] VITALS: BP 135/84; PULSE 55
[2023-09-06 09:00] VITALS: BP 131/78; PULSE 54
== END 2023-09-12 23:59 | disposition home or self-care (01) ==
LOC: CR 09:00
PROVIDERS: PCP Physician Assistant Medical; Visit Provider Internal Medicine Cardiovascular Disease
DX: R69 Illness, unspecified (principal)

== ENCOUNTER 2023-10-11 08:55 | Outpatient (RCR) | payer SELFPAY ==
[2023-09-13 00:31] VITALS: BP 145/80; PULSE 59
[2023-09-13 08:57] VITALS: BP 128/75; PULSE 48
[2023-09-18 09:16] VITALS: BP 112/62; PULSE 52
[2023-09-20 10:23] VITALS: BP 125/74; PULSE 51
[2023-09-27 09:09] VITALS: BP 130/78; PULSE 53
[2023-10-02 10:06] VITALS: BP 154/86; PULSE 48
[2023-10-04 08:40] VITALS: BP 140/76; PULSE 49
[2023-10-09 09:09] VITALS: BP 131/71; PULSE 54
[2023-10-11 09:03] VITALS: BP 119/73; PULSE 54
== END 2023-10-13 23:59 | disposition home or self-care (01) ==
LOC: CR 08:55
PROVIDERS: PCP Physician Assistant Medical; Visit Provider Internal Medicine Cardiovascular Disease
DX: R69 Illness, unspecified (principal)

== ENCOUNTER 2023-11-06 10:17 | Outpatient (RCR) | payer SELFPAY ==
[2023-10-14 00:30] VITALS: BP 145/80; PULSE 59
[2023-10-16 09:25] VITALS: BP 151/80; PULSE 56
[2023-10-18 09:12] VITALS: BP 145/82; PULSE 49; O2SAT 97
[2023-10-25 09:23] VITALS: BP 123/72; PULSE 55
[2023-10-30 09:17] VITALS: BP 138/78; PULSE 59
[2023-11-06 10:24] VITALS: BP 133/82; PULSE 53
== END 2023-11-12 23:59 | disposition home or self-care (01) ==
LOC: CR 10:17
PROVIDERS: PCP Physician Assistant Medical; Visit Provider Internal Medicine Cardiovascular Disease
DX: R69 Illness, unspecified (principal)

== ENCOUNTER 2023-12-13 09:02 | Outpatient (RCR) | payer SELFPAY ==
[2023-11-13 11:42] VITALS: BP 133/77; PULSE 53
[2023-11-20 09:03] VITALS: BP 115/70; PULSE 55
[2023-12-04 10:11] VITALS: BP 127/77; PULSE 59
[2023-12-11 09:04] VITALS: BP 111/65; PULSE 60
[2023-12-13 09:21] VITALS: BP 112/64; PULSE 56
== END 2023-12-13 23:59 | disposition home or self-care (01) ==
LOC: CR 09:02
PROVIDERS: PCP Physician Assistant Medical; Visit Provider Internal Medicine Cardiovascular Disease
DX: R69 Illness, unspecified (principal)

== ENCOUNTER 2024-01-03 08:46 | Outpatient (RCR) | payer SELFPAY ==
[2023-12-14 00:14] VITALS: BP 112/64; PULSE 56
[2023-12-18 09:00] VITALS: BP 115/58; PULSE 60
[2023-12-25 09:01] VITALS: BP 118/77; PULSE 79
[2024-01-01 09:32] VITALS: BP 129/65; PULSE 57
[2024-01-03 08:57] VITALS: BP 109/65; PULSE 55; O2SAT 94
== END 2024-01-12 23:59 | disposition home or self-care (01) ==
LOC: CR 08:46
PROVIDERS: PCP Physician Assistant Medical; Visit Provider Internal Medicine Cardiovascular Disease
DX: R69 Illness, unspecified (principal)

== ENCOUNTER 2024-02-07 08:47 | Outpatient (RCR) | payer SELFPAY ==
[2024-01-13 00:06] VITALS: BP 112/64; PULSE 56
[2024-01-15 09:34] VITALS: BP 127/64; PULSE 63
[2024-01-17 09:16] VITALS: BP 128/76; PULSE 58
[2024-01-22 09:31] VITALS: BP 132/77; PULSE 58
[2024-01-24 12:32] VITALS: BP 120/71; PULSE 61
[2024-01-29 09:00] VITALS: BP 125/59; PULSE 57
[2024-02-05 09:04] VITALS: BP 119/79; PULSE 65
[2024-02-07 08:52] VITALS: BP 128/70; PULSE 57; O2SAT 96
== END 2024-02-12 23:59 | disposition home or self-care (01) ==
LOC: CR 08:47
PROVIDERS: PCP Physician Assistant Medical; Visit Provider Internal Medicine Cardiovascular Disease
DX: R69 Illness, unspecified (principal)

== ENCOUNTER 2024-03-13 08:58 | Outpatient (RCR) | payer SELFPAY ==
[2024-02-13 00:20] VITALS: BP 112/64; PULSE 56
[2024-02-14 08:52] VITALS: BP 137/75; PULSE 57
[2024-02-19 09:05] VITALS: BP 116/67; PULSE 67
[2024-02-26 09:12] VITALS: BP 117/73; PULSE 55
[2024-02-28 09:22] VITALS: BP 129/74; PULSE 56
[2024-03-04 09:41] VITALS: BP 106/63; PULSE 48
[2024-03-11 09:13] VITALS: BP 114/62; PULSE 54
[2024-03-13 09:07] VITALS: BP 108/59; PULSE 56; O2SAT 97
== END 2024-03-14 23:59 | disposition home or self-care (01) ==
LOC: CR 08:58
PROVIDERS: PCP Physician Assistant Medical; Visit Provider Internal Medicine Cardiovascular Disease
DX: R69 Illness, unspecified (principal)

== ENCOUNTER 2024-04-10 09:14 | Outpatient (RCR) | payer SELFPAY ==
[2024-03-15 00:08] VITALS: BP 112/64; PULSE 56
[2024-03-18 09:20] VITALS: BP 116/62; PULSE 58
[2024-03-20 08:57] VITALS: BP 111/68; PULSE 54
[2024-03-25 09:24] VITALS: BP 131/76; PULSE 66
[2024-03-27 09:07] VITALS: BP 116/63; PULSE 53; O2SAT 95
[2024-04-01 09:21] VITALS: BP 138/72; PULSE 53
[2024-04-03 09:00] VITALS: BP 129/77; PULSE 60
[2024-04-08 09:41] VITALS: BP 129/76; PULSE 58
[2024-04-10 09:19] VITALS: BP 137/66; PULSE 59
== END 2024-04-11 23:59 | disposition home or self-care (01) ==
LOC: CR 09:14
PROVIDERS: PCP Physician Assistant Medical; Visit Provider Internal Medicine Cardiovascular Disease
DX: R69 Illness, unspecified (principal)

== ENCOUNTER 2024-05-08 08:59 | Outpatient (RCR) | payer SELFPAY ==
[2024-04-12 00:15] VITALS: BP 112/64; PULSE 56
[2024-04-15 09:08] VITALS: BP 120/70; PULSE 54
[2024-04-17 09:14] VITALS: BP 107/57; PULSE 59
[2024-04-22 09:35] VITALS: BP 125/74; PULSE 62
[2024-05-01 09:15] VITALS: BP 151/73; PULSE 51
[2024-05-06 09:04] VITALS: BP 137/79; PULSE 56
[2024-05-08 09:11] VITALS: BP 125/74; PULSE 57; O2SAT 95
== END 2024-05-12 23:59 | disposition home or self-care (01) ==
LOC: CR 08:59
PROVIDERS: PCP Physician Assistant Medical; Visit Provider Internal Medicine Cardiovascular Disease
DX: R69 Illness, unspecified (principal)

== ENCOUNTER 2024-06-10 09:06 | Outpatient (RCR) | payer SELFPAY ==
[2024-05-13 00:18] VITALS: BP 112/64; PULSE 56
[2024-05-13 09:35] VITALS: BP 131/82; PULSE 56
[2024-05-15 08:51] VITALS: BP 122/72; PULSE 54; O2SAT 95
[2024-05-20 09:13] VITALS: BP 110/68; PULSE 54
[2024-05-22 08:54] VITALS: BP 127/72; PULSE 56; O2SAT 94
[2024-05-27 09:37] VITALS: BP 110/67; PULSE 58
[2024-05-29 09:39] VITALS: BP 116/71; PULSE 55
[2024-06-03 09:10] VITALS: BP 109/60; PULSE 55
[2024-06-10 09:09] VITALS: BP 133/80; PULSE 57
== END 2024-06-11 23:59 | disposition home or self-care (01) ==
LOC: CR 09:06
PROVIDERS: PCP Physician Assistant Medical; Visit Provider Internal Medicine Cardiovascular Disease
DX: R69 Illness, unspecified (principal)

== ENCOUNTER 2024-07-10 09:24 | Outpatient (RCR) | payer SELFPAY ==
[2024-06-12 00:08] VITALS: BP 112/64; PULSE 56
[2024-06-12 09:02] VITALS: BP 120/69; PULSE 61
[2024-06-17 09:31] VITALS: BP 122/77; PULSE 61
[2024-06-19 10:16] VITALS: BP 110/65; PULSE 56
[2024-06-26 09:16] VITALS: BP 105/65; PULSE 55
[2024-07-01 10:14] VITALS: BP 124/79; PULSE 52
[2024-07-03 09:20] VITALS: BP 128/68; PULSE 54
[2024-07-08 09:06] VITALS: BP 121/71; PULSE 55
[2024-07-10 09:28] VITALS: BP 118/64; PULSE 50
== END 2024-07-12 23:59 | disposition home or self-care (01) ==
LOC: CR 09:24
PROVIDERS: PCP Physician Assistant Medical; Visit Provider Internal Medicine Cardiovascular Disease
DX: R69 Illness, unspecified (principal)

== ENCOUNTER 2024-08-07 09:00 | Outpatient (RCR) | payer SELFPAY ==
[2024-07-13 00:07] VITALS: BP 112/64; PULSE 56
[2024-07-15 09:12] VITALS: BP 120/72; PULSE 68
[2024-07-22 09:19] VITALS: BP 143/84; PULSE 57
[2024-07-24 09:36] VITALS: BP 135/81; PULSE 55
[2024-07-29 10:06] VITALS: BP 135/73; PULSE 53
[2024-07-31 10:38] VITALS: BP 122/73; PULSE 51
[2024-08-05 09:16] VITALS: BP 124/76; PULSE 55
[2024-08-07 09:00] VITALS: BP 118/71; PULSE 55
== END 2024-08-11 23:59 | disposition home or self-care (01) ==
LOC: CR 09:00
PROVIDERS: PCP Physician Assistant Medical; Visit Provider Internal Medicine Cardiovascular Disease
DX: R69 Illness, unspecified (principal)

== ENCOUNTER 2024-09-11 09:00 | Outpatient (RCR) | payer SELFPAY ==
[2024-08-12 00:18] VITALS: BP 118/71; PULSE 55
[2024-08-12 09:24] VITALS: BP 140/76; PULSE 105
[2024-08-14 09:00] VITALS: BP 133/76; PULSE 60; O2SAT 94
[2024-08-26 09:19] VITALS: BP 130/73; PULSE 60
[2024-08-28 09:17] VITALS: BP 127/71; PULSE 59
[2024-09-02 09:03] VITALS: BP 131/79; PULSE 64
[2024-09-04 09:14] VITALS: BP 129/79; PULSE 52
[2024-09-09 09:18] VITALS: BP 114/68; PULSE 57
[2024-09-11 09:18] VITALS: BP 124/77; PULSE 55
== END 2024-09-11 23:59 | disposition home or self-care (01) ==
LOC: CR 09:00
PROVIDERS: PCP Physician Assistant Medical; Visit Provider Internal Medicine Cardiovascular Disease
DX: R69 Illness, unspecified (principal)

== ENCOUNTER 2024-10-09 09:00 | Outpatient (RCR) | payer SELFPAY ==
[2024-09-12 00:08] VITALS: BP 124/77; PULSE 55
[2024-09-16 09:12] VITALS: BP 126/74; PULSE 53
[2024-09-18 09:45] VITALS: BP 132/79; PULSE 56
[2024-09-23 09:15] VITALS: BP 134/78; PULSE 55
[2024-09-25 09:19] VITALS: BP 120/74; PULSE 52
[2024-09-30 09:35] VITALS: BP 138/78; PULSE 55
[2024-10-02 09:03] VITALS: BP 133/73; PULSE 50
[2024-10-07 09:20] VITALS: BP 135/73; PULSE 51
[2024-10-09 09:03] VITALS: BP 133/85; PULSE 73
== END 2024-10-12 23:59 | disposition home or self-care (01) ==
LOC: CR 09:00
PROVIDERS: PCP Physician Assistant Medical; Visit Provider Internal Medicine Cardiovascular Disease
DX: R69 Illness, unspecified (principal)

== ENCOUNTER 2024-11-11 09:00 | Outpatient (RCR) | payer SELFPAY ==
[2024-10-14 09:37] VITALS: BP 130/83; PULSE 76
[2024-10-23 09:25] VITALS: BP 118/78; PULSE 89
[2024-10-28 10:42] VITALS: BP 120/77; PULSE 71
[2024-10-30 15:15] VITALS: BP 133/91; PULSE 87
[2024-11-04 09:10] VITALS: BP 150/90; PULSE 87
[2024-11-06 09:00] VITALS: BP 118/69; PULSE 92
[2024-11-11 09:12] VITALS: BP 129/87; PULSE 79
== END 2024-11-11 23:59 | disposition home or self-care (01) ==
LOC: CR 09:00
PROVIDERS: PCP Physician Assistant Medical; Visit Provider Internal Medicine Cardiovascular Disease
DX: R69 Illness, unspecified (principal)

== ENCOUNTER 2024-12-11 09:00 | Outpatient (RCR) | payer SELFPAY ==
[2024-11-12 00:20] VITALS: BP 129/87; PULSE 79
[2024-11-18 09:12] VITALS: BP 130/87; PULSE 95
[2024-11-25 09:28] VITALS: BP 136/91; PULSE 88
[2024-11-27 09:02] VITALS: BP 141/93; PULSE 76
[2024-12-02 09:10] VITALS: BP 117/80; PULSE 87
[2024-12-04 09:13] VITALS: BP 133/84; PULSE 86
[2024-12-09 09:21] VITALS: BP 119/74; PULSE 78
[2024-12-11 09:07] VITALS: BP 113/78; PULSE 80; O2SAT 96
== END 2024-12-12 23:59 | disposition home or self-care (01) ==
LOC: CR 09:00
PROVIDERS: PCP Physician Assistant Medical; Visit Provider Internal Medicine Cardiovascular Disease
DX: R69 Illness, unspecified (principal)

== ENCOUNTER 2025-01-06 09:00 | Outpatient (RCR) | payer SELFPAY ==
[2024-12-13 00:24] VITALS: BP 113/78; PULSE 80
[2024-12-23 09:14] VITALS: BP 129/84; PULSE 89
[2024-12-25 09:11] VITALS: BP 97/65; PULSE 82
[2024-12-30 09:16] VITALS: BP 111/66; PULSE 82
[2025-01-01 09:23] VITALS: BP 116/74; PULSE 83
[2025-01-06 09:35] VITALS: BP 134/87; PULSE 83
== END 2025-01-11 23:59 | disposition home or self-care (01) ==
LOC: CR 09:00
PROVIDERS: PCP Physician Assistant Medical; Visit Provider Internal Medicine Cardiovascular Disease
DX: R69 Illness, unspecified (principal)

== ENCOUNTER 2025-02-10 09:00 | Outpatient (RCR) | payer SELFPAY ==
[2025-01-12 00:10] VITALS: BP 134/87; PULSE 83
[2025-01-13 10:26] VITALS: BP 113/73; PULSE 96
[2025-01-15 09:36] VITALS: BP 114/80; PULSE 81
[2025-01-20 09:28] VITALS: BP 119/78; PULSE 88
[2025-01-22 09:13] VITALS: BP 114/73; PULSE 90
[2025-01-27 09:01] VITALS: BP 117/76; PULSE 86
[2025-01-29 09:23] VITALS: BP 116/80; PULSE 89
[2025-02-03 09:35] VITALS: BP 129/82; PULSE 89
[2025-02-10 09:27] VITALS: BP 126/80; PULSE 82
== END 2025-02-11 23:59 | disposition home or self-care (01) ==
LOC: CR 09:00
PROVIDERS: PCP Physician Assistant Medical; Visit Provider Internal Medicine Cardiovascular Disease
DX: R69 Illness, unspecified (principal)